=== PATIENT | female | born 1985 ===

== ENCOUNTER 2021-02-24 08:00 | Outpatient (CLI) | payer BC, SELFPAY ==
--- NOTE | 2021-03-03 07:48 | WPDHOMESLEEP ---
Sleep Study - Home Unattended Date of Study: 02/24/21 Ordering Provider: Adi Smith MD Interpreting Provider: Lissette Cantu MD Home Sleep Study Type: Apnea Link Air Height: 1.6 m Weight: 83.915 kg Body Mass Index: 32.8 Neck Circumference (inches): 15 [place]: 12 Reason for Sleep Study Hypersomnia Sleep History Sarah Zarate is a 35 year old female with complaints of waking throughout the night. She wakes up about 3 times per night and has a difficult time returning to sleep. She is exhausted during the day and never feels rested. She rarely awakens from sleep feeling short of breath. She frequently snores and occasionally this is loud enough that others complain about it. She frequently has trouble sleeping with a cold. She has allergic rhinitis with nasal drainage, and anxiety now on escitalopram 20 mg a day. She does not wake up gasping for breath at night. She occasionally has breathing problems at night observed by others and occasionally sweats excessively at night. She rarely notices her heart pounding or beating irregularly at night. She constantly falls asleep during the day although never involuntarily and never while driving. She does not have loss of muscle tone with strong emotion. She frequently has daytime difficulties due to excessive sleepiness. She does not feel paralyzed on waking or falling asleep and does not have vivid dreamlike scenes upon awakening or falling asleep. She does not feel afraid to go to sleep. She denies nightmares. She does not remember her dreams. She constantly has racing thoughts. She rarely feels sad or depressed. She constantly has anxiety and muscular tension. She frequently notices parts of her body jerking. She occasionally kicks at night. She frequently has crawling and aching feelings in her legs and leg pain during the night. She constantly has morning jaw pain. She frequently grinds her teeth during sleep. She occasionally is bothered by pain during the day. She is not awakened by pain at night. She occasionally wakes up feeling stiff in the morning with sore achy muscles and frequently awakens with pain in the neck and spine. She has headaches, fatigue, memory problems, and concentration difficulties and insomnia. She reports a 15 lb weight gain in the last year. Her fatigue and excessive sleepiness cause her to be too tired for intimate relations. She has 5 children. Normal bedtime is 10:00 p.m. falling asleep in minutes, waking 1-3 times during the night. While awake she may read or check her e-mail. It may take 1-3 hours for her to return to sleep. She wakes the morning at 6:00 a.m.. On the weekends she may go to bed later, 10 30-11 p.m. and wake at 7:00 a.m.. She estimates getting 5-6 hours of interrupted sleep at night. She takes naps in the afternoon or evening. Sometimes she is refreshed after a short nap lasting 10 or 15 minutes. She is usually drowsy in the morning, and this worsens in the afternoon. She frequently has morning headaches. She rarely awakens feeling refreshed. Habits: Never smoked tobacco. Caffeine 3-5 servings a day. No alcohol or recreational drugs. [facility] Past Medical History Medical History (Updated 03/03/21 @ 08:21 by Lissette Cantu MD) Abnormal fasting glucose Anemia Anxiety (07/16/20) BMI 34.0-34.9,adult Chronic pain of right ankle Encounter for wellness examination in adult Hypersomnia (~02/2021) Insomnia (~2019) Menorrhagia with irregular cycle Migraine without aura and without status migrainosus, not intractable Nausea and vomiting Rapid palpitations Seasonal allergic rhinitis Thrombocytopenia Vitamin B12 deficiency anemia Surgical History Surgical History (Updated 03/03/21 @ 07:58 by Lissette Cantu MD) S/P cholecystectomy Family History Family History (Updated 08/30/18 @ 16:40 by DOCTOR UNKNOWN) Grandparent Diabetes mellitus Family history of malignant neoplasm, Onset Age: 65 F
[2021-03-03 08:29] VITALS: BMI 32.8
== END 2021-02-25 13:11 | disposition home or self-care (01) ==
LOC: ANHCSM 08:03
PROVIDERS: PCP Family Medicine; Visit Provider Family Medicine
DX: G47.10 Hypersomnia, unspecified (principal); G25.81 Restless legs syndrome
CPT/HCPCS: 95806

== ENCOUNTER → 2022-03-06 10:24 | Outpatient (CLI) | payer BC, SELFPAY ==
--- NOTE | ~2022-03-06 | XR_ITS ---
Right foot Technique: AP, oblique, and lateral views were obtained. Clinical History: Pain Findings: No acute fracture or dislocation is seen. Osseous alignment is anatomic. Type II os navicul ar noted. Joint spaces are preserved without erosive or degenerative change. Soft tissues are unremar kable. Impression: No acute abnormality seen. Type II os navicular. Reviewed, dictated and finalized at location [] [employer] Impression: No acute abnormality seen. Type II os navicular.
== END ==
PROVIDERS: PCP Family Medicine; Visit Provider Family Medicine
DX: M79.671 Pain in right foot (principal)
CPT/HCPCS: 73630